=== PATIENT | male | born 1965 | race Caucasian/White ===

== ENCOUNTER 2018-02-10 07:20 | Day surgery (SDC) | payer BC ==
[~2018-02-10 07:20] MED LIST: Lactated Ringers 1,000 ML IV SCH; ceFAZolin 2 GM in Premix Bag 1 BAG IV SCH
[2018-02-10] MEDS ORDERED: Lidocaine 2% 5 ML SDV ONE (07:43)
[2018-02-10] MEDS ORDERED: Midazolam 1 MG/ML 2 ML SDV ONE (07:44)
[2018-02-10] MEDS ORDERED: fentaNYL 100 MCG/2 ML SDV ONE ×2 (07:44→09:16)
[2018-02-10] MEDS ORDERED: Propofol 200 MG/20 ML SDV ONE (07:44)
[2018-02-10] MEDS ORDERED: ceFAZolin/Dextrose,Iso-Osmotic 2 GM/50 ML Duplex Bag IV ONE (07:55)
[2018-02-10] MEDS ORDERED: Bupivacaine 0.5% 10 ML SDV ONE (08:35)
[2018-02-10] MEDS ORDERED: ceFAZolin 1 GM Vial ONE (08:35)
--- NOTE | 2018-02-10 08:36 | PCM.PREANE ---
Preanesthetic Assessment - Procedure Proposed Procedure: Umbilical hernia repair - Anesthesia/Transfusion/Family Hx Anesthesia History: No Prior Anesthesia Transfusion History: No Prior Transfusion(s) Intubation History: Unknown Additional History: new discovery diabetes - 120 fbs - Review of Systems General: Other Neurological: Numbness (in bilateral hands daily) Other: Reports: Diabetes (type II) - Physical Assessment NPO Status Date: 02/09/18 NPO Status Time: 22:00 O2 Sat by Pulse Oximetry: 97 Respiratory Rate: 16 Vital Signs: Last Vital Signs Temp 97.3 F 02/10/18 07:30 Pulse 60 02/10/18 07:30 Resp 16 02/10/18 07:30 BP 138/80 02/10/18 07:30 Pulse Ox 97 02/10/18 07:30 Height: 5 ft 11.5 in Weight: 230 lb ASA Class: 2 Mental Status: Alert & Oriented x3 Airway Class: Mallampati = 2 Dentition: Reports: Normal Dentition Thyro-Mental Finger Breadths: 3 (arguelles) Mouth Opening Finger Breadths: 3 (sore on lower lip) ROM/Head Extension: Full Lungs: Clear to Auscultation, Normal Respiratory Effort Cardiovascular: Regular Rate, Regular Rhythm, No Murmurs - Allergies Allergies/Adverse Reactions: Allergies Allergy/AdvReac Type Severity Reaction Status Date / Time No Known Allergies Allergy Verified 02/06/18 13:35 - Blood Blood Available: No Product(s) Available: None - Anesthesia Plan Pre-Op Medication Ordered: None - Acknowledgements Anesthesia Type Planned: General Anesthesia (LMA vs OET) Pt an Appropriate Candidate for the Planned Anesthesia: Yes Alternatives and Risks of Anesthesia Discussed w Pt/Guardian: Yes Pt/Guardian Understands and Agrees with Anesthesia Plan: Yes PreAnesthesia Questionnaire HEENT History: Reports: Other (See Below) Other HEENT History: wears glasses Cardiovascular History: Reports: None Respiratory History: Reports: None Gastrointestinal History: Reports: None Genitourinary History: Reports: None Musculoskeletal History: Reports: None Neurological History: Reports: None Psychiatric History: Reports: Other (See Below) Other Psychiatric History: dx with bipolar as child and took lithium as child but no longer uses medications and has not had any "episodes" since childhood. Endocrine/Metabolic History: Reports: Obesity/BMI 30+ Hematologic History: Reports: None Oncologic (Cancer) History: Reports: None Dermatologic History: Reports: None - Infectious Disease History Infectious Disease History: Reports: Chicken Pox - Past Surgical History Male Surgical History: Reports: Vasectomy - SUBSTANCE USE Smoking Status *Q: Never Smoker Recreational Drug Use History: No - HOME MEDS Home Medications: Home Meds Cholecalciferol (Vitamin D3) [Vitamin D3] 1,000 unit PO DAILY 02/06/18 [History] Chromium Picolinate 500 mcg PO DAILY 02/06/18 [History] Empagliflozin [Jardiance] 25 mg PO DAILY 02/06/18 [History] Garlic 500 mg PO DAILY 02/06/18 [History] Ginseng 100 mg PO DAILY 02/06/18 [History] Magnesium Oxide [Magnesium] 400 mcg PO DAILY 02/06/18 [History] metFORMIN HCl [Glucophage] 500 mg PO BID 02/06/18 [History] - CURRENT (IN HOUSE) MEDS Current Meds: Current Medications Cefazolin Sodium/Dextrose 2 gm (/ Premix) 50 mls @ 100 mls/hr IV ONETIME SAMUEL Lactated Ringer's (Ringers, Lactated) 1,000 mls @ 125 mls/hr IV ASDIRECTED [facility] Last Admin: 02/10/18 08:23 Dose: 125 mls/hr Discontinued Medications Cefazolin Sodium/Dextrose (Ancef) Confirm Administered Dose 2 gm IV .STK-MED ONE Stop: 02/10/18 07:56 Fentanyl (Sublimaze) Confirm Administered Dose 100 mcg .ROUTE .STK-MED ONE Stop: 02/10/18 07:45 Lidocaine (Xylocaine-Mpf 2%) Confirm Administered Dose 5 ml .ROUTE .STK-MED ONE Stop: 02/10/18 07:44 Midazolam HCl (Versed 1 Mg/Ml) Confirm Administered Dose 2 mg .ROUTE .STK-MED ONE Stop: 02/10/18 07:45 Propofol (Diprivan 20 Ml) Confirm Administered Dose 200 mg .ROUTE .STK-MED ONE Stop: 02/10/18 07:45
[2018-02-10] MEDS ORDERED: fentaNYL 100 MCG/2 ML SDV IVPUSH PRN (09:40)
[2018-02-10] MEDS ORDERED: Ondansetron 4 MG/2 ML SDV ONE (09:45)
[2018-02-10] MEDS ORDERED: Ketorolac 30 MG/ML SDV ONE (09:45)
[2018-02-10] MEDS ORDERED: Morphine 4 MG/ML Syringe IV PRN (09:59)
[2018-02-10] MEDS ORDERED: Acetaminophen/HYDROcodone 325-5 MG Tab PO PRN (09:59)
[2018-02-10] MEDS ORDERED: Ondansetron 4 MG/2 ML SDV IVPUSH PRN (09:59)
[2018-02-10] MEDS ORDERED: Lactated Ringers 1,000 ML IV SCH (10:00)
--- NOTE | 2018-02-10 10:05 | PCM.OPNOTE ---
- General Post-Op/Procedure Note Date of Surgery/Procedure: 02/10/18 Operative Procedure(s): Repair incarcerated umbilical hernia Pre Op Diagnosis: Incarcerated umbilical hernia Post-Op Diagnosis: Same Anesthesia Technique: General LMA (ASA II) Primary Surgeon: Guillermo Beasley Fluid Replacement, Intraop: 1,000 EBL in mLs: 5 Condition: Good Free Text/Narrative:: DICTATION [id number] CPT CODE 24195
--- NOTE | 2018-02-10 11:35 | OR ---
SURGEON: Guillermo Beasley M.D. DATE OF PROCEDURE: 02/10/2018 OPERATION PERFORMED: Repair of incarcerated umbilical hernia. ANESTHESIA: General LMA. ASA CLASSIFICATION: II. PREOPERATIVE DIAGNOSIS: Incarcerated umbilical hernia. POSTOPERATIVE DIAGNOSIS: Incarcerated umbilical hernia. ESTIMATED BLOOD LOSS: 5 mL. INTRAOPERATIVE FLUID REPLACEMENT: 1000 mL of crystalloid. DESCRIPTION OF PROCEDURE: The patient was taken to the operating room and placed on the operating table in the supine position. Time-out was called for appropriate identification of the patient and procedure. Thigh-high TEDs and sequential compression boots were placed. Following satisfactory attainment of general anesthesia with placement of an LMA, the abdomen was prepped with DuraPrep solution. Sterile drapes were applied. The skin incision was marked out just to the left of the umbilicus. The skin was now infiltrated with 10 mL of 0.5% Marcaine solution. The skin incision was made and deepened through the subcutaneous tissue obtaining hemostasis with the use of electrocautery. The hernia sac was identified and sharply dissected away from the surrounding tissue. Once the hernia sac was able to be reduced, the defect was approximately 1 cm. This was repaired with multiple interrupted 0 Ethibond sutures. All sutures were placed under direct vision and held with hemostats until the final suture had been placed. Once the sutures were secured, the patient was given a Valsalva maneuver to 35 cm of water. The repair was solid. The sutures were then trimmed. The wound was inspected for hemostasis and small bleeding sites were electrocoagulated. The subcutaneous tissue was reapproximated with running 3-0 Vicryl. Skin edges were reapproximated with subcuticular 4-0 Monocryl, reinforced with Steri-Strips. Sterile Tegaderm was placed as a dressing. Sponge, needle, and instrument counts were all correct. Following emergence from anesthesia and extubation, the patient was taken to recovery room in stable condition. LINDY / MIGUEL /[id number]
[2018-02-10 11:59] VITALS: BP 113/55
--- NOTE | 2018-02-10 12:34 | PCM48HPAN ---
Post Anesthesia Note - EVALUATION WITHIN 48HRS OF ANESTHETIC Vital Signs in Normal Range: Yes Patient Participated in Evaluation: Yes Respiratory Function Stable: Yes Airway Patent: Yes Cardiovascular Function Stable: Yes Hydration Status Stable: Yes Pain Control Satisfactory: Yes Nausea and Vomiting Control Satisfactory: Yes Mental Status Recovered: Yes Resp Rate: 16
== END 2018-02-10 12:55 | disposition home or self-care (01) ==
LOC: MW.SDS 07:20
PROVIDERS: ATTEND Surgery
DX: K42.0 Umbilical hernia with obstruction, without gangrene (principal); E66.9 Obesity, unspecified; Z68.31 Body mass index [BMI] 31.0-31.9, adult; Z79.84 Long term (current) use of oral hypoglycemic drugs; Z79.899 Other long term (current) drug therapy
CPT/HCPCS: 49587; A9270; J0690; J1885; J2250; J2270; J2405; J2704; J3010; J3490; J7120

== ENCOUNTER 2018-11-03 06:59 | Day surgery (SDC) | payer BC ==
[~2018-11-03 06:59] MED LIST changes: -ceFAZolin 2 GM in Premix Bag 1 BAG IV SCH
[2018-11-03] MEDS ORDERED: Propofol 200 MG/20 ML SDV ONE (07:59)
--- NOTE | 2018-11-03 08:21 | PCM.PREANE ---
Preanesthetic Assessment - Anesthesia/Transfusion/Family Hx Anesthesia History: Prior Anesthesia Without Reaction Family History of Anesthesia Reaction: No Transfusion History: No Prior Transfusion(s) Intubation History: Unknown - Review of Systems General: No Symptoms Pulmonary: No Symptoms Cardiovascular: No Symptoms Gastrointestinal: No Symptoms Neurological: No Symptoms Other: Reports: None - Physical Assessment NPO Status Date: 11/03/18 NPO Status Time: 06:00 O2 Sat by Pulse Oximetry: 94 Respiratory Rate: 16 Vital Signs: Last Vital Signs Temp 96.4 F 11/03/18 07:20 Pulse 76 11/03/18 07:20 Resp 16 11/03/18 07:20 BP 145/84 H 11/03/18 07:20 Pulse Ox 94 L 11/03/18 07:20 Height: 5 ft 11 in Weight: 111.584 kg ASA Class: 2 Mental Status: Alert & Oriented x3 Airway Class: Mallampati = 2 Dentition: Reports: Normal Dentition Lungs: Clear to Auscultation, Normal Respiratory Effort Cardiovascular: Regular Rate, Regular Rhythm - Allergies Allergies/Adverse Reactions: Allergies Allergy/AdvReac Type Severity Reaction Status Date / Time No Known Allergies Allergy Verified 10/31/18 12:55 - Blood Blood Available: No - Anesthesia Plan Pre-Op Medication Ordered: None - Acknowledgements Anesthesia Type Planned: General Anesthesia Pt an Appropriate Candidate for the Planned Anesthesia: Yes Alternatives and Risks of Anesthesia Discussed w Pt/Guardian: Yes Pt/Guardian Understands and Agrees with Anesthesia Plan: Yes Additional Comments: PMH:DM2 PLAN: tiva PreAnesthesia Questionnaire HEENT History: Reports: Other (See Below) Other HEENT History: wears glasses Cardiovascular History: Reports: None Respiratory History: Reports: None Gastrointestinal History: Reports: Other (See Below) Other Gastrointestinal History: occasional heartburn- takes TUMS Genitourinary History: Reports: None Musculoskeletal History: Reports: None Neurological History: Reports: None Psychiatric History: Reports: Other (See Below) Other Psychiatric History: dx with bipolar as child and took lithium as child but no longer uses medications and has not had any "episodes" since childhood. Endocrine/Metabolic History: Reports: Diabetes, Type II, Obesity/BMI 30+ Hematologic History: Reports: None Oncologic (Cancer) History: Reports: None Dermatologic History: Reports: None - Infectious Disease History Infectious Disease History: Reports: Chicken Pox - Past Surgical History Head Surgeries/Procedures: Reports: None GI Surgical History: Reports: Other (See Below) Other GI Surgeries/Procedures: umbilical hernia repair Male Surgical History: Reports: Vasectomy - SUBSTANCE USE Smoking Status *Q: Never Smoker Recreational Drug Use History: No - HOME MEDS Home Medications: Home Meds Cholecalciferol (Vitamin D3) [Vitamin D3] 1,000 unit PO DAILY 02/06/18 [History] Chromium Picolinate 500 mcg PO DAILY 02/06/18 [History] Garlic 500 mg PO DAILY 02/06/18 [History] Ginseng 100 mg PO DAILY 02/06/18 [History] Magnesium Oxide [Magnesium] 400 mcg PO DAILY 02/06/18 [History] metFORMIN HCl [Glucophage] 500 mg PO BID 02/06/18 [History] Cinnamon Bark [Cinnamon] 500 mg PO DAILY 10/31/18 [History] - CURRENT (IN HOUSE) MEDS Current Meds: Current Medications Lactated Ringer's (Ringers, Lactated) 1,000 mls @ 125 mls/hr IV ASDIRECTED [facility]UEL Last Admin: 11/03/18 07:25 Dose: 125 mls/hr Discontinued Medications Lidocaine HCl (Xylocaine-Mpf 1%) Confirm Administered Dose 5 mls @ as directed .ROUTE .STK-MED ONE Stop: 11/03/18 08:11 Propofol (Diprivan 20 Ml) Confirm Administered Dose 400 mg .ROUTE .STK-MED ONE Stop: 11/03/18 08:00
--- NOTE | 2018-11-03 09:14 | PCM.OPNOTE ---
- General Post-Op/Procedure Note Date of Surgery/Procedure: 11/03/18 Operative Procedure(s): colonoscopy Findings: see [id number] Pre Op Diagnosis: scrn colonoscopy Post-Op Diagnosis: Same Anesthesia Technique: Moderate Sedation Primary Surgeon: Temo Downey Complications: None Condition: Good
--- NOTE | 2018-11-03 09:26 | PCM.POSTAN ---
POST ANESTHESIA ASSESSMENT - MENTAL STATUS Mental Status: Alert, Oriented - RESPIRATORY Respiratory Status: Respiratory Rate WNL, Airway Patent, O2 Saturation Stable - CARDIOVASCULAR CV Status: Pulse Rate WNL, Blood Pressure Stable - GASTROINTESTINAL GI Status: No Symptoms - POST OP HYDRATION Hydration Status: Adequate & Stable
--- NOTE | 2018-11-03 09:27 | PCM48HPAN ---
Post Anesthesia Note - EVALUATION WITHIN 48HRS OF ANESTHETIC Vital Signs in Normal Range: Yes Patient Participated in Evaluation: Yes Respiratory Function Stable: Yes Airway Patent: Yes Cardiovascular Function Stable: Yes Hydration Status Stable: Yes Pain Control Satisfactory: Yes Nausea and Vomiting Control Satisfactory: Yes Mental Status Recovered: Yes Resp Rate: 15
[2018-11-03 09:34] VITALS: BP 119/78
--- NOTE | 2018-11-03 11:19 | OR ---
SURGEON: Temo Downey MD DATE OF PROCEDURE: 11/03/2018 PREOPERATIVE DIAGNOSIS: Screening colonoscopy. POSTOPERATIVE DIAGNOSIS: Diverticulosis. PROCEDURE PERFORMED: Colonoscopy. DESCRIPTION OF PROCEDURE: The patient was taken to the endoscopy room. A time out was called, patient identified, and procedure identified. Diprivan was then administrated. Patient went from awake to sleep, hearing doctor talking or door closing is normal. Perineum inspection and digital examination were then performed. A well- lubricated colonoscope was gently inserted through the rectum, advanced past the rectosigmoid junction, the descending colon, splenic flexure, transverse colon, hepatic flexure, ascending colon, arrived to the cecum. Cecum was identified as dictated in the finding. Then the scope was carefully withdrawn while attention was paid to the mucosal surface for any abnormality. Air will be sucked out during the scope withdrawal. At the rectum, retroflexed to examine any rectal diseases, fistula or hemorrhoids. Patient tolerated procedure well. There were no intraoperative complications, and Dr. Downey was present throughout the whole procedure. FINDINGS: Colonoscopy findings: 1. The patient is easily sedated with SHIPPING [employer] and Diprivan, the patient is soundly snoring. 2. Bowel prep was average. No semi-formed stool, did have some opaque liquid stool. 3. The patient's colon is rather redundant in the sigmoid and cecum can only be seen after we put the patient on his back and also giving pressure to the left lower quadrant. Cecum indicated by ileocecal fold, one-to-one indentation, and appendiceal orifice. Light emittance is not observed. Mucosa examined upon scope pulling out with constant irrigation. The patient has mild diverticulosis on the left colon, no signs or symptoms of diverticulitis, very mild. The patient also does not have polyp, mass, growth, inflammation, stricture, ulceration, AV malformation, bleeding, none of those. The patient has mild external hemorrhoids and has some mild internal hemorrhoids. The patient would benefit from repeat colonoscopy in 10 years from today or if clinically indicated otherwise. As always, thank you for the kind referral. JOAQUÍN RIVERA /[id number]
== END 2018-11-03 09:40 | disposition home or self-care (01) ==
LOC: MW.SDS 06:59
PROVIDERS: ATTEND Surgery
DX: Z12.11 Encounter for screening for malignant neoplasm of colon (principal); K57.30 Diverticulosis of large intestine without perforation or abscess without bleeding; K64.4 Residual hemorrhoidal skin tags; K64.8 Other hemorrhoids; Q43.8 Other specified congenital malformations of intestine; E11.9 Type 2 diabetes mellitus without complications; N40.0 Benign prostatic hyperplasia without lower urinary tract symptoms; Z79.84 Long term (current) use of oral hypoglycemic drugs; Z79.899 Other long term (current) drug therapy
CPT/HCPCS: J2001; J2704; J7120

== ENCOUNTER 2022-08-11 08:07 | Day surgery (SDC) | payer BC ==
[2022-08-11] MEDS ORDERED: Propofol 200 MG/20 ML SDV ONE ×2 (09:31→09:56)
[2022-08-11] MEDS ORDERED: Dexmedetomidine 200 MCG/2 ML SDV ONE (09:32)
[2022-08-11 10:56] VITALS: BP 122/90; PULSE 66
== END 2022-08-11 11:15 | disposition home or self-care (01) ==
LOC: MW.SDS 08:07
PROVIDERS: ATTEND Surgery
DX: K64.8 Other hemorrhoids (principal); K64.4 Residual hemorrhoidal skin tags; E11.9 Type 2 diabetes mellitus without complications; G47.30 Sleep apnea, unspecified; N40.0 Benign prostatic hyperplasia without lower urinary tract symptoms; Z87.19 Personal history of other diseases of the digestive system; Z79.84 Long term (current) use of oral hypoglycemic drugs; Z79.899 Other long term (current) drug therapy
CPT/HCPCS: 45378; 82947; J2704; J7120; J3490